=== PATIENT | female | born 1985 | race Caucasian/White ===

== ENCOUNTER 2017-04-07 18:25 | Inpatient (IN) | payer OTHER ==
[~2017-04-07] VITALS: Ht 170.2 cm; Wt 83.9 kg
--- NOTE | ~2017-04-07 | PN ---
Unit #: [id number] #: [id number] Patient: SABI MATTHEW [id number] [facility] [address] [place] [address] [id number] MR#: [id number] NAME: SABI MATTHEW ROOM: P180 Age: 31 Sex: F Admission Date: 04/07/2017 : 1985 Attending Physician: Margarita Monaco M.D. Admitting Physician: Margarita Monaco M.D. Primary Care Physician: Generic Doctor Not In System [facility] PROGRESS NOTES DATE OF SERVICE 04/09/2017 DISCUSSION Ms. Matthew is a 31-year-old white female with mood disorder who was seen today. Chart was reviewed and case was discussed with the staff. She has been anxious, withdrawn, and rather seclusive to herself. Meanwhile, she has been cooperative with the treatment recommendations and has been taking the medications and tolerating them fairly well with no reported side effects. MENTAL STATUS EXAMINATION Young white female who is casually dressed with fair personal hygiene and appears to be in no acute distress or discomfort. She was awake and alert with intact orientation. Her mood is anxious with congruent affect. She denies any suicidal or homicidal ideations. Her insight and judgment remain slightly impaired. TREATMENT PLAN 1. We will continue her on her current medications and treatment protocol. We will monitor her response and make further adjustments as needed. 2. We will continue to follow up. Dictated by... Margarita Monaco M.D. IAA/bzg TD: 04/09/2017 08:28 JOB #: [id number] Unit #: [id number] #: [id number] Patient: SABI MATTHEW PROGRESS NOTES Page 1 of 1 X Margarita Monaco MD X PROGRESS NOTE
--- NOTE | ~2017-04-07 | PN ---
Unit #: [id number] #: [id number] Patient: SABI MATTHEW [id number] [facility] [address] [place] [address] [id number] MR#: [id number] NAME: SABI MATTHEW ROOM: [facility] Age: 31 Sex: F Admission Date: 04/07/2017 : 1985 Attending Physician: Margarita Monaco M.D. Admitting Physician: Margarita Monaco M.D. Primary Care Physician: Generic Doctor Not In System [facility] PROGRESS NOTES HISTORY OF PRESENT ILLNESS Ms. Matthew is a 31-year-old white female who was seen today. Chart was reviewed and case was discussed with the staff. She has been anxious, withdrawn, and rather seclusive to herself. Meanwhile, she has been cooperative with the treatment recommendations and has been taking the medications and tolerating them fairly well with no reported side effects. MENTAL STATUS EXAMINATION Young white female who is casually dressed with fair personal hygiene, appears to be in no acute distress or discomfort. She was awake and alert on interaction with intact orientation. Her mood is anxious with congruent affect. She denies any suicidal or homicidal ideations. Her insight and judgment remain slightly impaired. TREATMENT PLAN 1. We will continue her on her current medications and treatment protocol. We will monitor her response to the medications and make further adjustments as needed. 2. We will continue to follow up. Dictated by... Margarita Monaco M.D. IAA/bzg TD: 04/11/2017 09:53 JOB #: [id number] [facility] PROGRESS NOTES Page 1 of 1 X Margarita Monaco MD PROGRESS NOTE
--- NOTE | ~2017-04-07 | HP ---
Unit #: [id number] #: [id number] Patient: ELINA KING [id number] [place] [address] [id number] I MR#: [id number] NAME: ELINA KING ROOM: P180 Age: 31 Sex: F Admission Date: 04/07/2017 : 1985 Attending Physician: Margarita Monaco M.D. Admitting Physician: Margarita Monaco M.D. Primary Care Physician: Generic Doctor Not In System HISTORY AND PHYSICAL HISTORY OF PRESENT ILLNESS Elina is a 31-year-old female admitted on 04/07/2017 to [facility] for heroin abuse and suicidal ideation. PAST MEDICAL HISTORY 1. Fibromyalgia. 2. COPD. PAST SURGICAL HISTORY 1. Joint fusion. 2. Tonsillectomy. 3. Hysterectomy. ALLERGIES Tramadol. SOCIAL HISTORY Smokes 1-1/2 packs cigarettes daily. No alcohol use. Does report a history of IV heroin use with most recent use on 03/09/2017. She is currently and living with her mother and her ex-. FAMILY HISTORY Noncontributory. REVIEW OF SYSTEMS CONSTITUTIONAL: No fever or chills. HEENT: Denies any sore throat, ear pain or runny nose. CARDIOVASCULAR: Denies chest pain, irregular heart rhythm or palpitations. CHEST: Denies shortness of breath or cough. No hemoptysis. GASTROINTESTINAL: Denies nausea, vomiting, diarrhea or chronic constipation. ENDOCRINE: Denies history of increased thirst or urination. No recent significant weight loss or gain. GENITOURINARY: Denies dysuria, frequency, or hematuria. SKIN: Denies any rashes. HEMATOLOGIC: Denies history of increased bleeding or bruising. MUSCULOSKELETAL: Denies any hot, swollen joints. No generalized muscle pain. NEUROLOGIC: Denies problems with vision or speech. No frequent, severe headaches. No numbness, tingling or weakness in any extremities. Denies loss of bladder or bowel control. CURRENT MEDICATIONS Unit #: [id number] #: [id number] Patient: ELINA KING 1. Trintellix. 2. Estradiol. 3. Pantoprazole. 4. Hydroxyzine. 5. Ibuprofen. 6. Trazodone. 7. Aripiprazole. 8. Lexapro. 9. Vitamin C. 10. Calcium. PHYSICAL EXAMINATION GENERAL: Alert, oriented, in no acute distress. VITAL SIGNS: Blood pressure 116/74, heart rate 88, temperature 98.2, respirations 20. HEIGHT: 5 feet 7. WEIGHT: 185 pounds. SKIN: Warm and dry without rash or lesion. HEENT: Normocephalic. TMs not viewed. Oral and nasal passages clear. Conjunctivae clear. PERRLA. EOMs intact. NECK: Supple without lymphadenopathy or thyromegaly. HEART: Regular rate and rhythm without murmur. LUNGS: Clear. ABDOMEN: Soft, nontender, without masses or hepatosplenomegaly. : Not done. EXTREMITIES: No evidence of cyanosis, clubbing or edema. Moves all without focal deficit. NEUROLOGICAL: Grossly within normal limits. Cranial Nerves: II: Visual valerio are intact. III, IV AND : Extraocular movements are intact. Pupils are equal, round and reactive to light. V: Facial sensation is grossly normal. VII: Facial movements and expression are normal. VIII: Auditory acuity grossly intact. IX, X: Uvula is midline. Phonation is normal. XI: Patient shrugs shoulders and turns head normally. XII: Tongue protrudes in the midline. Sensory and Motor Function: Sensory and motor sensation is grossly normal. Motor: moves all extremities well. Coordination: Gait is normal. Deep Tendon Reflexes: Intact. IMPRESSION 1. Psychiatric admission. 2. Fibromyalgia. 3. Chronic obstructive pulmonary disease. RECOMMENDATIONS PSYCHIATRIC: Per psychiatrist. MEDICAL: No contraindication to participate in facility's activities. MEDICAL PROGNOSIS Good. MEDICAL CONDITION Stable. Unit #: [id number] #: [id number] Patient: ELINA KING Dictated by... Jaen Bui/carolina TD: 04/08/2017 20:36 JOB #: [id number] HISTORY AND PHYSICAL Page 1 of 1 X RICHARD ESPINOSA APRN X HISTORY AND PHYSICAL
--- NOTE | ~2017-04-07 | PN ---
Unit #: [id number] #: [id number] Patient: SABI KING [id number] [facility] [address] [place] [address] [id number] I MR#: [id number] NAME: SABI KING ROOM: [facility] Age: 31 Sex: F Admission Date: 04/07/2017 : 1985 Attending Physician: Margarita Monaco M.D. Admitting Physician: Margarita Monaco M.D. Primary Care Physician: [place] Doctor Not In System [facility] PROGRESS NOTES DATE April 10, 2017 DISCUSSION Ms. Jules is a 31-year-old white female, who was seen today and chart was reviewed and the case was discussed with the staff. She has been anxious, withdrawn, but has not shown any agitation, irritability or behavioral problems, and has been cooperative with the treatment recommendations. She has been taking the medications and tolerating them fairly well with no reported side effects. MENTAL STATUS EXAMINATION Young white female, who was casually dressed with fair personal hygiene and appears to be in no acute distress or discomfort. She was awake and alert on interaction with intact orientation. Her mood was anxious with a congruent affect. Her speech is slow and goal-directed. The patient denies any suicidal or homicidal ideations, and also denies any auditory or visual hallucinations. Her insight and judgment remain slightly impaired. TREATMENT PLAN 1. We will continue her on her current medications and treatment protocol, and will monitor her response to the medications, and make further adjustments as needed. 2. We will continue to followup. Dictated by... Dariel Chou/mile TD: 04/10/2017 13:08 JOB #: [id number] Unit #: [id number] #: [id number] Patient: SABI KING PROGRESS NOTES Page 1 of 1 X Margarita Monaco MD PROGRESS NOTE
--- NOTE | ~2017-04-07 | DS ---
Unit #: [id number] #: [id number] Patient: SABI MATTHEW [id number] [facility] L[place] [address] [place] [address] [id number] I MR#: [id number] NAME: SABI MATTHEW ROOM: [facility] Age: 31 Sex: F Admission Date: 04/07/2017 : 1985 Discharge Date: 04/11/2017 Attending Physician: Margarita Monaco M.D. Primary Care Physician: Generic Doctor Not In System DISCHARGE SUMMARY IDENTIFYING DATA Ms. Matthew is a 31-year-old single white female, who was admitted to the hospital on a voluntary basis. HISTORY OF PRESENT ILLNESS Please see initial psychiatric evaluation for details. PAST PSYCHIATRIC HISTORY Please see initial psychiatric evaluation for details. PAST MEDICAL HISTORY Please see initial psychiatric evaluation for details. HOSPITAL COURSE The patient was admitted to the Adult Chemical Dependency and Psychiatric Unit at [facility] olga lidia Johnson and was oriented to the hospital environment. Routine p.r.n. medications and she was started back on her home medications and medications were adjusted and Trintellix was maintained and Abilify was discontinued and she was started on detox protocol and was closely monitored. The patient was taking the medications regularly and was tolerating them fairly well and able to show a decent therapeutic response and wanting to go home and was denying any suicidal ideations with intent or plan and was willing to continue inpatient psychiatric hospitalization and as such it was decided that she would continue treatment on an outpatient basis. DISCHARGE DIAGNOSES PSYCHIATRIC: [place] I Major depressive disorder, chronic, recurrent, moderate without psychotic features. Opiate dependence, moderate, in acute withdrawals. [place] II [place] III Fibromyalgia. COPD. [place] IV Mild psychosocial stressors. [place] V CONDITION AT DISCHARGE Stable. PROGNOSIS Fair. Unit #: [id number] #: [id number] Patient: SABI MATTHEW Dictated by... Dariel Chou/mile TD: 04/30/2017 11:53 JOB #: [id number] DISCHARGE SUMMARY Page 1 of 1 X Margarita Monaco MD DISCHARGE SUMMARY
--- NOTE | ~2017-04-07 | PA ---
Unit #: [id number] #: [id number] Patient: SABI MATTHEW [id number] [facility] [address] [place] [address] [id number] I MR#: [id number] NAME: SABI MATTHEW ROOM: P180 Age: 31 Sex: F Admission Date: 04/07/2017 : 1985 Date of Assessment: Attending Physician: Margarita Monaco M.D. Admitting Physician: Margarita Monaco M.D. Primary Care Physician: Generic Doctor Not In System PSYCHIATRIC ASSESSMENT DATE OF SERVICE 04/08/2017. IDENTIFYING DATA Ms. Matthew is a 31-year-old white female, who is a resident of [place], [place], and was self-referred to the hospital on a voluntary basis as a transfer from [facility] where she was brought in via ambulance. CHIEF COMPLAINT "Suicidal thoughts with a plan to cut my throat." HISTORY OF PRESENT ILLNESS Ms. Matthew is a 31-year-old white female, who was taken to [facility] Emergency Room via ambulance from her recovery treatment, where she has been for 3 weeks in [place], [place], and presented with suicidal ideation with a plan to cut her throat and reports that she is feeling suicidal because she is not supported by her or family in her recovery and reports that she is in recovery from heroin and Klonopin, with the last use 3 weeks ago and does endorse significant depression, anxiety, restlessness feelings of hopelessness and helplessness, and suicidal ideations with intent and plan and as such, a recommendation for inpatient level of care for safety and stabilization was made and the patient was transferred to us. SUBSTANCE ABUSE HISTORY The patient reports history of heroin and Klonopin abuse and reports that she has been using IV heroin for 7 years and Klonopin for the last 5 years and has been at [facility] in [place], [place], for the last 3 weeks. PAST PSYCHIATRIC HISTORY The patient has had a history of a psychiatric treatment, and review of the medical records indicate that she has been diagnosed and treated for mood disorder and is currently on a combination of psychotropic medications including Trintellix, Lexapro, Invega, and Abilify. PAST MEDICAL HISTORY The patient's medical history is significant for COPD. ALLERGIES Tramadol. Unit #: [id number] #: [id number] Patient: SABI MATTHEW PERSONAL AND SOCIAL HISTORY A 31-year-old white female, who reports that she is and currently is a resident of [facility] in [place], where she is completing her chemical dependency rehab level of care. MENTAL STATUS EXAMINATION Young white female, who was casually dressed with fair personal hygiene, appears to be in no acute distress or discomfort. She was awake and alert on interaction with intact orientation to time, place, and person. Her mood was anxious and depressed with a congruent affect. Her speech was slow and restricted in content. Her thought processes were disorganized with some looseness of associations and suicidal ideations. Her insight and judgment remain significantly impaired. DIAGNOSTIC IMPRESSION Psychiatric: Bipolar disorder, most recent episode depressed, recurrent, moderate, without psychotic features; opioid dependence, moderate; and benzodiazepine dependence, moderate. Medical: None. Stressors: Moderate psychosocial stressors. TREATMENT PLAN 1. The patient has presented with a history of substance abuse and mood disorder and has been decompensating and will need inpatient hospitalization for safety and stabilization. We will start her back on her home medications and we will adjust the medications and monitor response. 2. Supportive therapy was provided to the patient. 3. Safe, structured, and nourishing environment will be provided. ESTIMATED LENGTH OF STAY 5 to 7 days. ABILITY TO HELP SELF Limited. WILLINGNESS TO HELP SELF The patient appears to be willing to help self. STRENGTHS 1. Communicative. 2. Cooperative. PROBLEMS 1. Chronic dysphoric symptoms. 2. Poor social support system. DISCHARGE CRITERIA This will be contingent upon the patient's ability to go through detox without having any significant withdrawal symptoms as well as her ability to stay safe to herself, particularly after discharge from the hospital. Dictated by... Dariel Chou/adi Unit #: [id number] #: [id number] Patient: SABI MATTHEW TD: 04/08/2017 14:44 JOB #: [id number] PSYCHIATRIC ASSESSMENT Page 1 of 1 X Margarita Monaco MD X PSYCHIATRIC ASSESSMENT
== END 2017-04-11 17:53 | DRG 885 ==
LOC: P1E 23:42
PROC: HZ2ZZZZ Detoxification Services for Substance Abuse Treatment (ICD-10-PCS; principal; 2017-04-07)
DX: F31.32 Bipolar disorder, current episode depressed, moderate (principal); F11.20 Opioid dependence, uncomplicated; F13.20 Sedative, hypnotic or anxiolytic dependence, uncomplicated; M79.7 Fibromyalgia; J44.9 Chronic obstructive pulmonary disease, unspecified; Z90.710 Acquired absence of both cervix and uterus; F17.210 Nicotine dependence, cigarettes, uncomplicated